=== PATIENT | male | born 1960 | race African-American/Black ===

== ENCOUNTER 2016-10-25 12:22 | Inpatient (IN) | payer OTHER ==
[2016-10-25] MEDS ORDERED: IOPAMIDOL 300 (61%) 150 ML VIAL IV ONE (12:23)
[2016-10-25] MEDS ORDERED: LACTATED RINGERS 1,000 ML ONE ×2 (13:07→16:17)
[2016-10-25] MEDS ORDERED: HYDROMORPHONE HCL 1 MG/ML SYRINGE ONE ×3 (13:07→16:17)
[2016-10-25] MEDS ORDERED: ONDANSETRON 4 MG/2ML 2 ML VIAL ONE (13:07)
[2016-10-25 13:14] LABS: ABSOLUTE NEUTROPHIL COUNT 8.6 K/mm3 (1.8-7.7); BASO # 0.1 K/mm3 (0.0-0.2); BASO % 0.5 % (0.2-1.0); EOS # 0.1 (0.0-0.5); EOS % 0.4 % (0.9-2.9); HEMOGLOBIN 21.6 gm/l (14.0-18.0); IMM NEUT # 0.1 K/mm3 (0-0.2); IMM NEUT% 1.1 % (0-1); LYMPH % 23.3 % (15-45); MEAN CELL VOLUME 89.3 fl (80.0-94.0); MEAN CORPUSCULAR HEMOGLOBIN 31.6 pg (27.0-31.0); MEAN CORPUSCULAR HGB CONC 35.4 g/dl (33.0-37.0); MEAN PLATELET VOLUME 10.7 fl (7.4-10.4); MONO # 1.2 (0.0-0.8); MONO % 9.4 % (4-12); NEUT % 65.3 % (43-75); PLATELET COUNT 139 K/mm3 (130-400); RED CELL DISTRIBUTION WIDTH 16.7 % (11.5-14.5)
--- NOTE | 2016-10-25 14:23 | CT ---
ABD/PELVIS W/ CON COMPARISON: CT abdomen and pelvis 10/02/2016 HISTORY: Abdominal pain. Past history of pancreatitis. Technique: Intravenous injection 125 mL Isovue 300. Using a [employer] Aquilion [address] scanner, images were obtained from the diaphragm to the floor the pelvis. An automated dose reduction technique was used to minimize patient radiation dose. Dose information: CTDIvol (mGy): 7.40 DLP(mGycm): 318.10 FINDINGS: Lung bases: Normal. Inferior mediastinum and heart: Normal. Liver: Normal. Gallbladder:Normal. Bile ducts: Normal. Pancreas: Multiple calcifications. Mildly dilated main pancreatic duct. No mass. No swelling. Mild stranding in the fat surrounding the tail. Spleen: No change. In the posterior superior pole, 17 mm poorly enhancing lesion. Adrenal glands: No change. In the right adrenal gland, 2.1 x 1.2 cm mass containing some fat. In the left gland, no change. There are 2 masses, superior 1.7 x 0.9 cm and inferior 1.9 x 1.7 cm, both containing fat. Kidneys: Normal. Ureters: Normal Urinary bladder: Normal. Uterus and adnexa: Normal. Blood vessels: Atherosclerosis of the aorta and its branches in the abdomen and the pelvis. Lymph nodes: Normal Stomach: Normal Duodenum: Normal Small intestine: Normal Appendix: Normal Colon: Normal Abdominal wall and supporting musculature: Normal Bones: Normal IMPRESSION: 1. Acute pancreatitis with inflammatory stranding in the fat surrounding the tail the pancreas. Baseline chronic pancreatitis with multiple calcifications. 2. No change in bilateral fat-containing adrenal masses, benign, and poorly enhancing mass in the spleen. The results were discussed with Iker Mead M.D. 10/25/2016 at 14:20
[2016-10-25 15:39] LABS: ALBUMIN 3.6 gm/dL (3.5-5.7); CALCIUM 9.4 mg/dL (8.6-10.3)
[2016-10-25 17:15] VITALS: BMI 22.7
[2016-10-25] MEDS ORDERED: PUMP TUBING ONE (17:41)
[2016-10-25] MEDS ORDERED: HYDROMORPHONE HCL 2 MG/ML SYRINGE IV PRN (17:44)
[2016-10-25] MEDS: HYDROMORPHONE HCL 1 MG/ML SYRINGE IV PRN ×4 (17:45→23:48)
[2016-10-25] MEDS: SODIUM CHLORIDE 0.9% 1,000 ML IV SCH (17:45)
[2016-10-25] MEDS ORDERED: BLISTEX LIPSTICK 1 EACH TP PRN (18:51)
[2016-10-25] MEDS ORDERED: BISACODYL 5 MG TABLET.EC PO PRN (18:51)
[2016-10-25] MEDS ORDERED: SODIUM CHLORIDE 0.9% 100 ML IV PRN (18:51)
[2016-10-25] MEDS ORDERED: MAGNESIUM HYDROXIDE 30 ML UDCUP PO PRN (18:51)
[2016-10-25] MEDS ORDERED: MENTHOL/CETYLPYRD 1 EACH LOZENGE PO PRN (18:51)
[2016-10-25] MEDS ORDERED: BISACODYL 10 MG SUP PR PRN (18:51)
[2016-10-25] MEDS ORDERED: ALBUTEROL SULFATE MDI 60 PUFFS/INHALER IH PRN (18:57)
[2016-10-25] MEDS ORDERED: NICOTINE 14 MG PATCH 1 EACH TD SCH (19:00)
[2016-10-25] MEDS ORDERED: ENOXAPARIN SODIUM 40 MG/0.4 ML SYRINGE SUB-Q SCH (19:00)
[2016-10-25] MEDS: HYDROMORPHONE HCL 2 MG/ML SYRINGE IV PRN ×2 (19:18→21:44)
[2016-10-25] MEDS: ALBUTEROL/IPRATROPIUM 2.5/0.5 MG 3 ML/EACH DOSE IH SCH (20:56)
[2016-10-25] MEDS: BUDESONIDE 0.5 MG/2 ML VIAL.NEB IH SCH (20:56)
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
[2016-10-25] MEDS: PHENYTOIN SODIUM 100 MG PO SCH (21:52)
[2016-10-25] MEDS: LEVETIRACETAM 500 MG TABLET PO SCH (21:52)
[2016-10-26] MEDS: SODIUM CHLORIDE 0.9% 1,000 ML IV SCH ×4 (00:53→21:54)
[2016-10-26] MEDS: HYDROMORPHONE HCL 2 MG/ML SYRINGE IV PRN ×10 (02:07→23:41)
[2016-10-26 02:19] LABS: SPECIFIC GRAVITY 1.015 (1.001-1.030); URINE BILIRUBIN NEGATIVE (NEGATIVE); URINE BLOOD 2+ (NEGATIVE); URINE GLUCOSE (UA) NEGATIVE (NEGATIVE); URINE LEUKOCYTE ESTERASE 1+ (NEGATIVE); URINE NITRITE NEGATIVE (NEGATIVE); URINE PROTEIN 1+ (NEGATIVE); URINE UROBILINOGEN NORMAL (0-1 mg/dl)
[2016-10-26 02:30] LABS: URINE APPEARANCE SL CLOUDY; URINE COLOR AMBER
[2016-10-26 02:31] LABS: URINE BACTERIA TRACE
[2016-10-26] MEDS: HYDROMORPHONE HCL 1 MG/ML SYRINGE IV PRN ×3 (03:56→20:37)
[2016-10-26 06:17] LABS: HEMATOCRIT 47.9 % (32.0-52.0); MEAN CELL VOLUME 90.4 fl (80.0-94.0); MEAN CORPUSCULAR HEMOGLOBIN 32.1 pg (27.0-31.0); MEAN CORPUSCULAR HGB CONC 35.5 g/dl (33.0-37.0)
[2016-10-26 06:21] LABS: ALBUMIN 3.1 gm/dL (3.5-5.7); BLOOD UREA NITROGEN 12 mg/dL (7-25); BUN/CREATININE RATIO 15 (6-20); CALCIUM 8.7 mg/dL (8.6-10.3); GLOMERULAR FILTRATION RATE 100 mL/min (60-93)
[2016-10-26 06:22] LABS: ALT/SGPT < 5 U/L (7-52)
[2016-10-26] MEDS: BUDESONIDE 0.5 MG/2 ML VIAL.NEB IH SCH ×2 (08:10→20:27)
[2016-10-26] MEDS: ALBUTEROL/IPRATROPIUM 2.5/0.5 MG 3 ML/EACH DOSE IH SCH ×4 (08:10→20:27)
[2016-10-26] MEDS: PHENYTOIN SODIUM 100 MG PO SCH ×2 (09:54→21:36)
[2016-10-26] MEDS: PANTOPRAZOLE 40 MG TABLET DR PO SCH (09:55)
[2016-10-26] MEDS: ONDANSETRON 4 MG/2ML 2 ML VIAL IV PRN ×3 (10:11→21:48)
--- NOTE | 2016-10-26 11:23 | PDOC43 ---
- Subjective Chief Complaint: Pancreatitis Abdominal pain is a little better but still severe. Vomited this a.m. C/o some dyspnea worse than normal due to abdominal bloating. - Objective Vital Signs Temperature 97.7 F 10/26/16 07:57 Pulse Rate 70 10/26/16 08:11 Respiratory Rate 18 10/26/16 08:11 Blood Pressure 110/74 10/26/16 07:57 O2 Saturation by Pulse Oximetry 93 10/26/16 08:11 Oxygen Delivery Method Room Air Oxygen Flow Rate 0 Intake and Output 10/25/16 10/26/16 10/27/16 06:59 06:59 06:59 Intake Total 2455 Output Total 550 Balance 1905 General: Alert, Oriented x3, Cooperative, Mild Distress HEENT: Mucous membr. moist/pink Lungs: Clear to Auscultation Bilaterally Cardiovascular: Regular Rate and Rhythm Abdomen: Soft, Tenderness, Hypoactive Bowel Sounds, Mild Distention, No Masses Extremities: Normal Pulses, Other (wart on dorsum of left foot), No Edema Skin: Normal Color Neurological: Normal Speech Psych/Mental Status: Normal Mood Laboratory 10/26/16 05:30 10/26/16 05:30 10/26/16 05:30 MCH 32.1 H RDW 15.0 H Estimated GFR 100 H AST 8 L ALT < 5 L Total Protein 6.1 L Albumin 3.1 L Current Medications: Current meds reviewed in EMR. - Problems: Assessment/Plan (1) Pancreatitis Qualifiers: Chronicity: acute Pancreatitis type: idiopathic Status: Acute Assessment/Plan: Acute recurrent ideopathic pancreatitis. Continue hydromorphone, ondansetron, IV fluids and ice chips. (2) COPD (chronic obstructive pulmonary disease) Qualifiers: COPD type: chronic bronchitis Chronic bronchitis type: simple Qualifier Code: (J41.0) Simple chronic bronchitis Status: Chronic Assessment/Plan: With chronic respiratory failure on home O2, continue O2 and nebs. (3) HTN (hypertension) Qualifiers: Hypertension type: essential hypertension Qualifier Code: (I10) Essential (primary) hypertension Status: Chronic Assessment/Plan: BP was high due to acute pain but well controlled now. (4) Thrombocytopenia Status: Chronic Assessment/Plan: Chronic known condition, enoxaparin is contraindicated. (5) Epilepsy Qualifiers: Epilepsy type: unspecified Intractability: not intractable Status epilepticus: without status epilepticus Qualifier Code: (G40.909) Epilepsy, unspecified, not intractable, without status epilepticus Status: Chronic Assessment/Plan: Stable, continue usual dilantin and kepra. (6) Hyponatremia Status: Chronic Assessment/Plan: at his baseline now. (7) Polycythemia Status: Chronic Assessment/Plan: H/H decreased with hydration, plan is for phlebotomy for Hct > 50%. (8) Sleep apnea Qualifiers: Sleep apnea type: obstructive Qualifier Code: (G47.33) Obstructive sleep apnea (adult) (pediatric) Status: Chronic Assessment/Plan: May use home CPAP VTE Prophylaxis: Mechanical only, enoxaparin is contraindicated. Disposition: Home when able to eat.
[2016-10-26] MEDS: SENNOSIDES 8.6 MG TABLET PO SCH ×3 (12:09→22:32)
[2016-10-26] MEDS: FUROSEMIDE 40 MG TABLET PO SCH (12:09)
[2016-10-26] MEDS: ATENOLOL 100 MG TABLET PO SCH (12:09)
[2016-10-26] MEDS: NICOTINE 14 MG PATCH 1 EACH TD SCH (14:00)
[2016-10-26] MEDS: LEVETIRACETAM 500 MG TABLET PO SCH (21:36)
[2016-10-26] MEDS ORDERED: IV START KIT ONE (23:46)
[2016-10-27] MEDS: ONDANSETRON 4 MG/2ML 2 ML VIAL IV PRN ×3 (01:51→23:14)
[2016-10-27] MEDS: HYDROMORPHONE HCL 2 MG/ML SYRINGE IV PRN ×11 (01:56→23:39)
[2016-10-27 05:53] LABS: HEMATOCRIT 45.2 % (32.0-52.0); HEMOGLOBIN 15.4 gm/l (14.0-18.0); MEAN CORPUSCULAR HGB CONC 34.1 g/dl (33.0-37.0); RED CELL DISTRIBUTION WIDTH 15.7 % (11.5-14.5)
[2016-10-27 06:11] LABS: CALCIUM 8.6 mg/dL (8.6-10.3)
[2016-10-27] MEDS: SODIUM CHLORIDE 0.9% 1,000 ML IV SCH ×5 (07:16→23:09)
[2016-10-27] MEDS: ALBUTEROL/IPRATROPIUM 2.5/0.5 MG 3 ML/EACH DOSE IH SCH ×4 (08:55→21:45)
[2016-10-27] MEDS: BUDESONIDE 0.5 MG/2 ML VIAL.NEB IH SCH ×2 (09:01→21:46)
[2016-10-27] MEDS: [UNRECOGNIZED DRUG - OTHER] PO SCH ×2 (10:02→21:30)
[2016-10-27] MEDS: PHENYTOIN 100 MG/4 ML PO SCH ×2 (10:02→21:30)
--- NOTE | 2016-10-27 11:19 | PDOC43 ---
- Subjective Chief Complaint: Pancreatitis Still having severe abdominal pain and not tolerating pills, they make him vomit. Can tolerated liquid medications with sips of room temp water. - Objective Vital Signs Temperature 97.8 F 10/27/16 08:10 Pulse Rate 74 10/27/16 09:00 Respiratory Rate 18 10/27/16 09:00 Blood Pressure 126/79 10/27/16 08:10 O2 Saturation by Pulse Oximetry 96 10/27/16 09:00 Oxygen Delivery Method Nasal Cannula Oxygen Flow Rate 2 Intake and Output 10/26/16 10/27/16 10/28/16 06:59 06:59 06:59 Intake Total 2455 2049 Output Total 550 625 Balance 1905 1424 General: Alert, Oriented x3, Cooperative, No Acute Distress HEENT: Mucous membr. moist/pink Lungs: Clear to Auscultation Bilaterally Cardiovascular: Regular Rate and Rhythm Abdomen: Soft, Tenderness, Normal Bowel Sounds, No Masses Extremities: Normal Pulses, No Edema Skin: Normal Color Neurological: Normal Speech Psych/Mental Status: Anxious Laboratory 10/27/16 05:40 10/27/16 05:40 10/27/16 05:40 MCH 32.0 H RDW 15.7 H Lipase 132 H Current Medications: Current meds reviewed in EMR. - Problems: Assessment/Plan (1) Pancreatitis Qualifiers: Chronicity: acute Pancreatitis type: idiopathic Status: Acute Assessment/Plan: Acute recurrent ideopathic pancreatitis, appears to be slowly improving. Continue hydromorphone, ondansetron, IV fluids and ice chips. (2) COPD (chronic obstructive pulmonary disease) Qualifiers: COPD type: chronic bronchitis Chronic bronchitis type: simple Qualifier Code: (J41.0) Simple chronic bronchitis Status: Chronic Assessment/Plan: With chronic respiratory failure on home O2, continue O2 and nebs. (3) HTN (hypertension) Qualifiers: Hypertension type: essential hypertension Qualifier Code: (I10) Essential (primary) hypertension Status: Chronic Assessment/Plan: BP was high due to acute pain but well controlled now. (4) Thrombocytopenia Status: Chronic Assessment/Plan: Chronic known condition, stable, enoxaparin is contraindicated. (5) Epilepsy Qualifiers: Epilepsy type: unspecified Intractability: not intractable Status epilepticus: without status epilepticus Qualifier Code: (G40.909) Epilepsy, unspecified, not intractable, without status epilepticus Status: Chronic Assessment/Plan: Stable, continue usual dilantin and kepra, changed to liquids. (6) Hyponatremia Status: Chronic Assessment/Plan: resolved. (7) Polycythemia Status: Chronic Assessment/Plan: H/H decreased with hydration, plan is for phlebotomy for Hct > 50%. (8) Sleep apnea Qualifiers: Sleep apnea type: obstructive Qualifier Code: (G47.33) Obstructive sleep apnea (adult) (pediatric) Status: Chronic Assessment/Plan: May use home CPAP VTE Prophylaxis: Mechanical only, enoxaparin is contraindicated. Disposition: Home when able to eat.
[2016-10-27] MEDS: SENNOSIDES 8.6 MG TABLET PO SCH (11:40)
[2016-10-27] MEDS: PANTOPRAZOLE 40 MG TABLET DR PO SCH (11:40)
[2016-10-27] MEDS: FUROSEMIDE 40 MG TABLET PO SCH (11:40)
[2016-10-27] MEDS: ATENOLOL 100 MG TABLET PO SCH (11:40)
[2016-10-27] MEDS: PANTOPRAZOLE SODIUM 40 MG VIAL IV SCH (11:52)
[2016-10-27] MEDS: METOPROLOL TARTRATE 1 MG/ML 5ML VIAL IV SCH ×2 (11:52→18:37)
[2016-10-27] MEDS: FUROSEMIDE 40 MG/4 ML VIAL IV SCH (11:52)
[2016-10-27] MEDS: NICOTINE 14 MG PATCH 1 EACH TD SCH (14:04)
[2016-10-27] MEDS ORDERED: LEVETIRACETAM 500 MG TABLET PO SCH (21:00)
[2016-10-27] MEDS: HYDROMORPHONE HCL 1 MG/ML SYRINGE IV PRN (21:35)
[2016-10-27] MEDS ORDERED: LEVETIRACETAM 500 MG in SODIUM CHLORIDE 0.9% 100 ML IV SCH (22:30)
[2016-10-28] MEDS: METOPROLOL TARTRATE 1 MG/ML 5ML VIAL IV SCH ×4 (00:46→18:15)
[2016-10-28] MEDS: HYDROMORPHONE HCL 2 MG/ML SYRINGE IV PRN ×7 (01:51→16:52)
[2016-10-28] MEDS: SODIUM CHLORIDE 0.9% 1,000 ML IV SCH ×3 (04:08→20:01)
[2016-10-28] MEDS: ALBUTEROL/IPRATROPIUM 2.5/0.5 MG 3 ML/EACH DOSE IH SCH ×4 (08:25→20:08)
[2016-10-28] MEDS: BUDESONIDE 0.5 MG/2 ML VIAL.NEB IH SCH ×2 (08:25→20:08)
[2016-10-28] MEDS: FUROSEMIDE 40 MG/4 ML VIAL IV SCH (08:28)
[2016-10-28] MEDS: PHENYTOIN 100 MG/4 ML PO SCH ×2 (08:37→21:08)
[2016-10-28] MEDS: [UNRECOGNIZED DRUG - OTHER] PO SCH ×2 (08:37→21:08)
--- NOTE | 2016-10-28 11:32 | PDOC43 ---
- Subjective Chief Complaint: Pancreatitis Pain is still present but much better, wants to start oral meds and clear liquids. - Objective Vital Signs Temperature 97.4 F 10/28/16 08:01 Pulse Rate 56 10/28/16 08:01 Respiratory Rate 16 10/28/16 08:01 Blood Pressure 124/78 10/28/16 08:01 O2 Saturation by Pulse Oximetry 99 10/28/16 08:01 Oxygen Delivery Method Room Air Oxygen Flow Rate 0 Intake and Output 10/27/16 10/28/16 10/29/16 06:59 06:59 06:59 Intake Total 2049 3076 Output Total 625 2900 Balance 1424 176 General: Alert, Oriented x3, Cooperative, No Acute Distress HEENT: Mucous membr. moist/pink Lungs: Clear to Auscultation Bilaterally Cardiovascular: Regular Rate and Rhythm Abdomen: Soft, Tenderness (improved), Normal Bowel Sounds, No Masses Extremities: Normal Pulses, No Edema Skin: Normal Color Neurological: Normal Speech Psych/Mental Status: Normal Mood Laboratory 10/27/16 05:40 10/27/16 05:40 Current Medications: Current meds reviewed in EMR. - Problems: Assessment/Plan (1) Pancreatitis Qualifiers: Chronicity: acute Pancreatitis type: idiopathic Status: Acute Assessment/Plan: Acute recurrent ideopathic pancreatitis, appears to be slowly improving. Continue hydromorphone, begin clears and oral meds. (2) COPD (chronic obstructive pulmonary disease) Qualifiers: COPD type: chronic bronchitis Chronic bronchitis type: simple Qualifier Code: (J41.0) Simple chronic bronchitis Status: Chronic Assessment/Plan: With chronic respiratory failure on home O2, continue O2 and nebs. (3) HTN (hypertension) Qualifiers: Hypertension type: essential hypertension Qualifier Code: (I10) Essential (primary) hypertension Status: Chronic Assessment/Plan: BP was high due to acute pain but well controlled now. (4) Thrombocytopenia Status: Chronic Assessment/Plan: Chronic known condition, stable, enoxaparin is contraindicated. (5) Epilepsy Qualifiers: Epilepsy type: unspecified Intractability: not intractable Status epilepticus: without status epilepticus Qualifier Code: (G40.909) Epilepsy, unspecified, not intractable, without status epilepticus Status: Chronic Assessment/Plan: Stable, continue usual dilantin and kepra, changed to liquids due to vomiting. (6) Hyponatremia Status: Chronic Assessment/Plan: resolved. (7) Polycythemia Status: Chronic Assessment/Plan: H/H decreased with hydration, plan is for phlebotomy for Hct > 50%. (8) Sleep apnea Qualifiers: Sleep apnea type: obstructive Qualifier Code: (G47.33) Obstructive sleep apnea (adult) (pediatric) Status: Chronic Assessment/Plan: May use home CPAP (9) Chronic pain Qualifiers: Chronic pain type: chronic pain syndrome Qualifier Code: (G89.4) Chronic pain syndrome Status: Chronic Assessment/Plan: Resume usual home morphine regimen. VTE Prophylaxis: Mechanical only, enoxaparin is contraindicated. Disposition: Home when able to eat.
[2016-10-28] MEDS: PANTOPRAZOLE SODIUM 40 MG VIAL IV SCH (12:35)
[2016-10-28] MEDS: MORPHINE SULFATE 30 MG TABLET PO SCH ×2 (14:33→20:05)
[2016-10-28] MEDS: NICOTINE 14 MG PATCH 1 EACH TD SCH (14:33)
[2016-10-28] MEDS ORDERED: LEVETIRACETAM 500 MG TABLET PO SCH (21:00)
[2016-10-28] MEDS ORDERED: AMITRIPTYLINE HCL 25 MG TABLET PO SCH (21:00)
[2016-10-28] MEDS ORDERED: MORPHINE SULFATE 30 MG TABLET PO ONE (23:43)
[2016-10-29] MEDS: METOPROLOL TARTRATE 1 MG/ML 5ML VIAL IV SCH ×2 (03:08→09:00)
[2016-10-29] MEDS: SODIUM CHLORIDE 0.9% 1,000 ML IV SCH (05:24)
[2016-10-29 06:32] LABS: HEMATOCRIT 46.2 % (32.0-52.0); HEMOGLOBIN 15.7 gm/l (14.0-18.0); MEAN CELL VOLUME 92.2 fl (80.0-94.0); MEAN CORPUSCULAR HEMOGLOBIN 31.3 pg (27.0-31.0)
[2016-10-29 06:37] LABS: CALCIUM 9.9 mg/dL (8.6-10.3)
[2016-10-29] MEDS: MORPHINE SULFATE 30 MG TABLET PO SCH (08:53)
[2016-10-29 09:20] VITALS: BP 151/94
--- NOTE | 2016-10-29 09:50 | PDOC5 ---
ADMIT DATE: 10/25/16 DISCHARGE DATE: 10/29/16 ADMISSION DIAGNOSES: recurrent acute on chronic idiopathic pancreatitis PROCEDURES PERFORMED THIS HOSPITALIZATION: CT abd/pelvis on admit--acute/ chronic pancreatitis CONSULTATIONS: None HOSPITAL COURSE: This is a 56 year old with history of chronic pancreatitis and recurrent acute episodes. He presented with abdominal pain elevated lipase and inflamatory stranding on CT. He was admitted to med/surg treated with IVF and IV hydromorphone. He had gradual reduction in symptoms. On 10/28 he was started on clear liquids and resumed his usual oral morphine dose. On 10/29 he says he is ready to go home. - Exam Vital Signs Temperature 98.9 F 10/29/16 02:00 Pulse Rate 80 10/29/16 02:00 Respiratory Rate 17 10/29/16 03:10 Blood Pressure 111/75 10/29/16 02:00 O2 Saturation by Pulse Oximetry 96 10/29/16 02:00 Oxygen Delivery Method Room Air Oxygen Flow Rate 0 General: Alert, Oriented x3, Cooperative, No Acute Distress HEENT: Mucous membr. moist/pink Lungs: Clear to Auscultation Bilaterally Cardiovascular: Regular Rate and Rhythm Abdomen: Soft, Normal Bowel Sounds, No Tenderness, No Masses Extremities: Normal Pulses, No Edema Skin: Normal Color Neurological: Normal Speech Psych/Mental Status: Depressed - Results Laboratory 10/29/16 05:30 10/29/16 05:30 10/29/16 05:30 MCH 31.3 H RDW 15.0 H BUN 4 L Estimated GFR 116 H - Problems:Assessment/Plan (1) Pancreatitis Qualifiers: Chronicity: acute Pancreatitis type: idiopathic Status: Acute Assessment/Plan: Acute recurrent ideopathic pancreatitis, appears to be slowly improving. Eating and onl oral meds today, discharge. (2) COPD (chronic obstructive pulmonary disease) Qualifiers: COPD type: chronic bronchitis Chronic bronchitis type: simple Qualifier Code: (J41.0) Simple chronic bronchitis Status: Chronic Assessment/Plan: With chronic respiratory failure on home O2, continue O2 and nebs. (3) HTN (hypertension) Qualifiers: Hypertension type: essential hypertension Qualifier Code: (I10) Essential (primary) hypertension Status: Chronic Assessment/Plan: BP was high due to acute pain but well controlled now. (4) Thrombocytopenia Status: Chronic Assessment/Plan: Chronic known condition, stable, enoxaparin is contraindicated. (5) Epilepsy Qualifiers: Epilepsy type: unspecified Intractability: not intractable Status epilepticus: without status epilepticus Qualifier Code: (G40.909) Epilepsy, unspecified, not intractable, without status epilepticus Status: Chronic Assessment/Plan: Stable, continue usual dilantin and kepra, resume oral meds (6) Hyponatremia Status: Chronic Assessment/Plan: resolved. (7) Polycythemia Status: Chronic Assessment/Plan: H/H decreased with hydration, plan is for phlebotomy for Hct > 50%. (8) Sleep apnea Qualifiers: Sleep apnea type: obstructive Qualifier Code: (G47.33) Obstructive sleep apnea (adult) (pediatric) Status: Chronic Assessment/Plan: May use home CPAP (9) Chronic pain Qualifiers: Chronic pain type: chronic pain syndrome Qualifier Code: (G89.4) Chronic pain syndrome Status: Chronic Assessment/Plan: Resume usual home morphine regimen. - Disposition: Disposition: Home today - Discharge Plan Instruction Forms: Heart Failure Discharge Medications: Dr. Benitez has your morphine prescription ready at the clinic. Follow-Up: Ruslan Benitez MD [Primary Care Provider] - 11/05/16 9:45 am Condition: Fair Disposition: Home
[2016-10-29] MEDS: ALBUTEROL/IPRATROPIUM 2.5/0.5 MG 3 ML/EACH DOSE IH SCH (09:58)
[2016-10-29] MEDS: PHENYTOIN 100 MG/4 ML PO SCH (10:16)
[2016-10-29] MEDS: [UNRECOGNIZED DRUG - OTHER] PO SCH (10:16)
== END 2016-10-29 09:55 | disposition home or self-care (01) | DRG 439 ==
LOC: ED 12:22 → MS 16:17
PROVIDERS: ADMIT Family Medicine; ATTEND Family Medicine
DX: K85.90 Acute pancreatitis without necrosis or infection, unspecified (principal); I50.32 Chronic diastolic (congestive) heart failure; K86.1 Other chronic pancreatitis; I70.0 Atherosclerosis of aorta; E27.9 Disorder of adrenal gland, unspecified; R16.1 Splenomegaly, not elsewhere classified; J44.9 Chronic obstructive pulmonary disease, unspecified; Z99.81 Dependence on supplemental oxygen; D75.1 Secondary polycythemia; R09.02 Hypoxemia; G47.33 Obstructive sleep apnea (adult) (pediatric); G40.909 Epilepsy, unspecified, not intractable, without status epilepticus; M54.9 Dorsalgia, unspecified; I11.0 Hypertensive heart disease with heart failure; Z99.3 Dependence on wheelchair; F17.210 Nicotine dependence, cigarettes, uncomplicated

== ENCOUNTER 2017-01-06 05:58 | Inpatient (IN) | payer OTHER ==
[2017-01-06] MEDS ORDERED: ONDANSETRON 4 MG/2ML 2 ML VIAL ONE (06:52)
[2017-01-06] MEDS ORDERED: HYDROMORPHONE HCL 1 MG/ML SYRINGE ONE ×3 (06:52→08:15)
[2017-01-06] MEDS ORDERED: SODIUM CHLORIDE 0.9% 1,000 ML ONE (06:52)
[2017-01-06 07:08] LABS: ABSOLUTE NEUTROPHIL COUNT 7.4 K/mm3 (1.8-7.7); BASO # 0.1 K/mm3 (0.0-0.2); BASO % 0.5 % (0.2-1.0); EOS # 0.1 (0.0-0.5); EOS % 0.6 % (0.9-2.9); HEMATOCRIT 61.2 % (32.0-52.0); HEMOGLOBIN 21.8 gm/l (14.0-18.0); IMM NEUT # 0.1 K/mm3 (0-0.2); LYMPH % 18.5 % (15-45); MEAN CELL VOLUME 94.2 fl (80.0-94.0); MEAN CORPUSCULAR HEMOGLOBIN 33.5 pg (27.0-31.0); MEAN CORPUSCULAR HGB CONC 35.6 g/dl (33.0-37.0); MEAN PLATELET VOLUME 11.2 fl (7.4-10.4); MONO # 0.9 (0.0-0.8); MONO % 8.8 % (4-12); NEUT % 70.6 % (43-75); PLATELET COUNT 138 K/mm3 (130-400); RED CELL DISTRIBUTION WIDTH 17.8 % (11.5-14.5)
[2017-01-06 07:31] LABS: ALBUMIN 4.1 gm/dL (3.5-5.7); CALCIUM 9.8 mg/dL (8.6-10.3)
[2017-01-06] MEDS ORDERED: BLISTEX LIPSTICK 1 EACH TP PRN (09:25)
[2017-01-06] MEDS ORDERED: MENTHOL/CETYLPYRD 1 EACH LOZENGE PO PRN (09:25)
[2017-01-06] MEDS ORDERED: SODIUM CHLORIDE 0.9% 100 ML IV PRN (09:25)
[2017-01-06] MEDS ORDERED: ACETAMINOPHEN 325 MG TABLET PO PRN (09:25)
[2017-01-06] MEDS ORDERED: BISACODYL 10 MG SUP PR PRN (09:25)
[2017-01-06] MEDS ORDERED: BISACODYL 5 MG TABLET.EC PO PRN (09:25)
[2017-01-06] MEDS ORDERED: HYDROMORPHONE HCL 2 MG/ML SYRINGE IV PRN (09:26)
[2017-01-06] MEDS ORDERED: HYDROMORPHONE HCL 0.5 MG/0.5 ML SYRINGE IV PRN (10:15)
[2017-01-06 10:20] VITALS: BMI 22.9
[2017-01-06] MEDS ORDERED: PUMP TUBING ONE (10:27)
[2017-01-06] MEDS: SODIUM CHLORIDE 0.9% 1,000 ML IV SCH ×4 (10:30→23:06)
[2017-01-06] MEDS: HYDROMORPHONE HCL 1 MG/ML SYRINGE IV PRN ×3 (10:31→22:02)
[2017-01-06] MEDS: ENOXAPARIN SODIUM 40 MG/0.4 ML SYRINGE SUB-Q SCH (10:31)
[2017-01-06] MEDS ORDERED: HYDROMORPHONE HCL 1 MG/ML SYRINGE IV ONE (11:34)
[2017-01-06] MEDS ORDERED: NALOXONE HCL 0.4 MG/ML VIAL IV PRN (11:41)
[2017-01-06] MEDS ORDERED: PROMETHAZINE IV PER PHARMACY 1 EACH in SODIUM CHLORIDE 0.9% 50 ML IV PRN (11:44)
[2017-01-06] MEDS ORDERED: HYDROMORPHONE PCA (MONOJECT) 12 MG/30 ML INJ.SOLN IV SCH (11:49)
[2017-01-06] MEDS ORDERED: PHENYTOIN SODIUM 100 MG PO SCH (12:15)
[2017-01-06] MEDS ORDERED: PCA ADMINISTRATION KIT ONE (12:18)
[2017-01-06] MEDS ORDERED: ALBUTEROL NEB 2.5 MG/3 ML VIAL.NEB NEB PRN (12:25)
[2017-01-06] MEDS ORDERED: EtCO2 Monitoring Set ONE (12:33)
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
[2017-01-06] MEDS: PROCHLORPERAZINE 5 MG/ML 2 ML VIAL IV ONE ×2 (13:53→14:21)
[2017-01-06] MEDS ORDERED: PROCHLORPERAZINE MALEATE 10 MG TABLET PO PRN (14:09)
[2017-01-06] MEDS: ATENOLOL 100 MG TABLET PO SCH (14:18)
[2017-01-06] MEDS: ONDANSETRON 4 MG/2ML 2 ML VIAL IV PRN ×2 (14:18→22:02)
[2017-01-06] MEDS: ALBUTEROL/IPRATROPIUM 2.5/0.5 MG 3 ML/EACH DOSE IH SCH ×4 (16:32→23:46)
[2017-01-06] MEDS: PHENYTOIN 125 MG/5 ML PO SCH ×2 (17:05→22:10)
[2017-01-06] MEDS: AMLODIPINE BESYLATE 5 MG TABLET PO SCH (17:06)
[2017-01-06] MEDS: HYDROMORPHONE PCA (MONOJECT) 12 MG/30 ML INJ.SOLN IV SCH (18:00)
[2017-01-06] MEDS: BUDESONIDE 0.5 MG/2 ML VIAL.NEB IH SCH ×2 (19:38→23:05)
[2017-01-06] MEDS ORDERED: LEVETIRACETAM 250 MG TABLET PO SCH (21:00)
[2017-01-06] MEDS: LEVETIRACETAM 250 MG TABLET PO SCH (22:11)
[2017-01-07] MEDS: SODIUM CHLORIDE 0.9% 1,000 ML IV SCH ×4 (03:59→23:32)
[2017-01-07] MEDS: HYDROMORPHONE HCL 1 MG/ML SYRINGE IV PRN ×6 (03:59→22:19)
[2017-01-07] MEDS: HYDROMORPHONE PCA (MONOJECT) 12 MG/30 ML INJ.SOLN IV SCH ×4 (06:00→18:31)
[2017-01-07 06:10] LABS: ABSOLUTE NEUTROPHIL COUNT 5.9 K/mm3 (1.8-7.7); BASO % 0.4 % (0.2-1.0); EOS # 0.1 (0.0-0.5); EOS % 1.2 % (0.9-2.9); HEMATOCRIT 50.4 % (32.0-52.0); HEMOGLOBIN 17.1 gm/l (14.0-18.0); IMM NEUT # 0.1 K/mm3 (0-0.2); IMM NEUT% 0.6 % (0-1); LYMPH % 21.9 % (15-45); MEAN CELL VOLUME 97.5 fl (80.0-94.0); MEAN CORPUSCULAR HEMOGLOBIN 33.1 pg (27.0-31.0); MEAN CORPUSCULAR HGB CONC 33.9 g/dl (33.0-37.0); MEAN PLATELET VOLUME 11.7 fl (7.4-10.4); MONO # 0.9 (0.0-0.8); MONO % 9.7 % (4-12); NEUT % 66.2 % (43-75); PLATELET COUNT 116 K/mm3 (130-400); RED CELL DISTRIBUTION WIDTH 17.2 % (11.5-14.5)
[2017-01-07 06:26] LABS: CALCIUM 8.3 mg/dL (8.6-10.3)
[2017-01-07] MEDS: BUDESONIDE 0.5 MG/2 ML VIAL.NEB IH SCH ×3 (07:43→20:05)
[2017-01-07] MEDS: ALBUTEROL/IPRATROPIUM 2.5/0.5 MG 3 ML/EACH DOSE IH SCH ×5 (07:43→20:05)
[2017-01-07] MEDS: AMLODIPINE BESYLATE 5 MG TABLET PO SCH (08:36)
[2017-01-07] MEDS: ATENOLOL 100 MG TABLET PO SCH (08:36)
[2017-01-07] MEDS: PHENYTOIN 125 MG/5 ML PO SCH ×3 (08:37→20:33)
[2017-01-07] MEDS: ENOXAPARIN SODIUM 40 MG/0.4 ML SYRINGE SUB-Q SCH (09:20)
[2017-01-07] MEDS ORDERED: EtCO2 Monitoring Set ONE (09:57)
--- NOTE | 2017-01-07 11:18 | PDOC43 ---
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 moist/pink Lungs: Clear to Auscultation Bilaterally, Diminished at Bases Cardiovascular: Regular Rate and Rhythm Abdomen: Soft, Normal Bowel Sounds, Mild Distention, Other (diffuse discomfort to palpation), No Rebounding, No Involuntary Guarding Extremities: Normal Pulses, No Edema Peripheral Pulses: Dorsalis Pedis (L): 2+, Dorsalis Pedis (R): 2+ Skin: Warm, Dry, Intact Laboratory 01/07/17 05:30 01/07/17 05:30 01/07/17 05:30 MCV 97.5 H MCH 33.1 H RDW 17.2 H Estimated GFR 100 H Calcium 8.3 L Lipase 991 H Current Medications: Current meds reviewed in EMR. - Problems: Assessment/Plan (1) Pancreatitis Qualifiers: Chronicity: acute Pancreatitis type: drug induced Status: Acute Assessment/Plan: Acute on chronic pancreatitis suspect drug induced possibly from testosterone, lipase up to 991 today - bowel rest, aggressive hydration (2) Polycythemia Status: ChronicAssessment/Plan: followed by Dr Harrison also believed to be a side effect of testosterone and chronic hypoxia - therapeutic phlebotomy after discharge (3) Transgendered Status: ChronicAssessment/Plan: genotypically female, phenotypically male on testosterone replacement (4) COPD (chronic obstructive pulmonary disease) Qualifiers: COPD type: chronic bronchitis Chronic bronchitis type: unspecified Qualifier Code: (J42) Unspecified chronic bronchitis Status: Chronic Assessment/Plan: with chronic hypoxic resp failure on home oxygen - stable (5) Chronic pain Qualifiers: Chronic pain type: chronic pain syndrome Qualifier Code: (G89.4) Chronic pain syndrome Status: ChronicAssessment/Plan: on morphine at home totalling 90mg daily, appears opioid tolerant - cont Dilaudid (6) HTN (hypertension) Qualifiers: Hypertension type: essential hypertension Qualifier Code: (I10) Essential (primary) hypertension Status: ChronicAssessment/Plan: taking usual meds with sips of water (7) Epilepsy Qualifiers: Epilepsy type: unspecified Intractability: not intractable Status epilepticus: without status epilepticus Qualifier Code: (G40.909) Epilepsy, unspecified, not intractable, without status epilepticus Status: Chronic Assessment/Plan: taking dilantin but switched to liquid form to reduce amount of water needed to take pills (8) Sleep apnea Qualifiers: Sleep apnea type: obstructive Qualifier Code: (G47.33) Obstructive sleep apnea (adult) (pediatric) Status: ChronicAssessment/Plan: using home CPAP VTE Prophylaxis: Lovenox Disposition: home in 2-4 days
[2017-01-07] MEDS ORDERED: SODIUM CHLORIDE 0.9% FLUSH 10 ML ONE (12:06)
[2017-01-07] MEDS ORDERED: IV START KIT ONE (12:06)
[2017-01-07] MEDS: LEVETIRACETAM 250 MG TABLET PO SCH (20:33)
[2017-01-07] MEDS ORDERED: WATER FOR IRRIG,STERILE 500 ML BOT ONE (22:14)
[2017-01-07] MEDS ORDERED: NICOTINE POLACRILEX 2 MG LOZENGE PO PRN (22:19)
[2017-01-08] MEDS: HYDROMORPHONE PCA (MONOJECT) 12 MG/30 ML INJ.SOLN IV SCH ×4 (00:30→18:09)
[2017-01-08] MEDS: SODIUM CHLORIDE 0.9% 1,000 ML IV SCH ×5 (01:58→22:28)
[2017-01-08] MEDS: NICOTINE 14 MG PATCH 1 EACH TD SCH ×2 (02:12→21:37)
[2017-01-08] MEDS: HYDROMORPHONE HCL 1 MG/ML SYRINGE IV PRN ×3 (02:12→08:25)
[2017-01-08 06:18] LABS: ABSOLUTE NEUTROPHIL COUNT 5.2 K/mm3 (1.8-7.7); BASO % 0.3 % (0.2-1.0); EOS # 0.2 (0.0-0.5); EOS % 2.5 % (0.9-2.9); HEMATOCRIT 45.2 % (32.0-52.0); HEMOGLOBIN 15.5 gm/l (14.0-18.0); IMM NEUT% 0.5 % (0-1); LYMPH # 1.7 (1.0-4.8); LYMPH % 20.8 % (15-45); MEAN CELL VOLUME 98.3 fl (80.0-94.0); MEAN CORPUSCULAR HEMOGLOBIN 33.7 pg (27.0-31.0); MEAN CORPUSCULAR HGB CONC 34.3 g/dl (33.0-37.0); MEAN PLATELET VOLUME 11.5 fl (7.4-10.4); MONO # 0.8 (0.0-0.8); MONO % 10.2 % (4-12); NEUT % 65.7 % (43-75); PLATELET COUNT 92 K/mm3 (130-400)
[2017-01-08 06:26] LABS: CALCIUM 8.2 mg/dL (8.6-10.3)
--- NOTE | 2017-01-08 08:12 | PDOC43 ---
- Subjective Chief Complaint: epigastric abd pain Pain is better, no longer radiating into chest, but still radiating to back. Slept a little better last night. - Objective Vital Signs Temperature 98.0 F 01/08/17 07:18 Pulse Rate 70 01/08/17 07:18 Respiratory Rate 16 01/08/17 07:18 Blood Pressure 137/79 01/08/17 07:18 O2 Saturation by Pulse Oximetry 98 01/08/17 07:18 Oxygen Delivery Method Room Air Oxygen Flow Rate 0 Intake and Output 01/07/17 01/08/17 01/09/17 06:59 06:59 06:59 Intake Total 3285 5372 Output Total 450 2200 Balance 2835 3172 General: Alert, Oriented x3, Cooperative, No Acute Distress HEENT: Mucous membr. moist/pink Lungs: Clear to Auscultation Bilaterally Cardiovascular: Regular Rate and Rhythm Abdomen: Soft, Tenderness, Hypoactive Bowel Sounds, No Rebounding, No Involuntary Guarding, No Masses Extremities: Normal Pulses, No Edema Skin: Normal Color Neurological: Normal Speech Psych/Mental Status: Normal Mood Laboratory 01/08/17 05:30 01/08/17 05:30 01/08/17 05:30 RBC 4.60 L MCV 98.3 H MCH 33.7 H RDW 17.0 H Anion Gap 7 L BUN 5 L Estimated GFR 116 H Calcium 8.2 L Lipase 178 H Current Medications: Current meds reviewed in EMR. - Problems: Assessment/Plan (1) Pancreatitis Qualifiers: Chronicity: acute Pancreatitis type: drug induced Status: Acute Assessment/Plan: Acute on chronic pancreatitis suspect drug induced from testosterone, improving with decreased lipase today. 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 Improved with hydration. Return to Dr. Harrison for therapeutic phlebotomy after discharge. (3) COPD (chronic obstructive pulmonary disease) Qualifiers: COPD type: chronic bronchitis Chronic bronchitis type: unspecified Qualifier Code: (J42) Unspecified chronic bronchitis Status: Chronic Assessment/Plan: with chronic hypoxic resp failure on home oxygen - stable (4) CHF (congestive heart failure) Qualifiers: Congestive heart failure type: diastolic Congestive heart failure chronicity: chronic Qualifier Code: (I50.32) Chronic diastolic (congestive) heart failure Status: ChronicAssessment/Plan: No evidence of current exacerbation. (5) Epilepsy Qualifiers: Epilepsy type: unspecified Intractability: not intractable Status epilepticus: without status epilepticus Qualifier Code: (G40.909) Epilepsy, unspecified, not intractable, without status epilepticus Status: Chronic Assessment/Plan: taking dilantin but switched to liquid form to reduce amount of water needed to take pills (6) Sleep apnea Qualifiers: Sleep apnea type: obstructive Qualifier Code: (G47.33) Obstructive sleep apnea (adult) (pediatric) Status: ChronicAssessment/Plan: using home CPAP (7) HTN (hypertension) Qualifiers: Hypertension type: essential hypertension Qualifier Code: (I10) Essential (primary) hypertension Status: ChronicAssessment/Plan: taking usual meds with sips of water, moderate control (8) Hyponatremia Status: ChronicAssessment/Plan: At his personal baseline. VTE Prophylaxis: Lovenox Disposition: home in 2-4 days
[2017-01-08] MEDS: AMLODIPINE BESYLATE 5 MG TABLET PO SCH (08:24)
[2017-01-08] MEDS: ATENOLOL 100 MG TABLET PO SCH (08:24)
[2017-01-08] MEDS: PHENYTOIN 125 MG/5 ML PO SCH ×3 (08:24→21:03)
[2017-01-08] MEDS: ALBUTEROL/IPRATROPIUM 2.5/0.5 MG 3 ML/EACH DOSE IH SCH ×4 (08:36→20:43)
[2017-01-08] MEDS: BUDESONIDE 0.5 MG/2 ML VIAL.NEB IH SCH ×2 (08:37→20:42)
[2017-01-08] MEDS: ENOXAPARIN SODIUM 40 MG/0.4 ML SYRINGE SUB-Q SCH (09:04)
[2017-01-08] MEDS: LEVETIRACETAM 250 MG TABLET PO SCH (21:02)
[2017-01-09] MEDS: SODIUM CHLORIDE 0.9% 1,000 ML IV SCH ×5 (04:48→23:30)
[2017-01-09 06:14] LABS: HEMATOCRIT 47.6 % (32.0-52.0); HEMOGLOBIN 16.4 gm/l (14.0-18.0); MEAN CELL VOLUME 97.5 fl (80.0-94.0); MEAN CORPUSCULAR HEMOGLOBIN 33.6 pg (27.0-31.0); MEAN CORPUSCULAR HGB CONC 34.5 g/dl (33.0-37.0); RED CELL DISTRIBUTION WIDTH 16.6 % (11.5-14.5)
[2017-01-09 06:37] LABS: CALCIUM 8.9 mg/dL (8.6-10.3)
[2017-01-09] MEDS: HYDROMORPHONE PCA (MONOJECT) 12 MG/30 ML INJ.SOLN IV SCH ×3 (06:52→17:42)
[2017-01-09] MEDS: ALBUTEROL/IPRATROPIUM 2.5/0.5 MG 3 ML/EACH DOSE IH SCH ×4 (08:30→20:26)
[2017-01-09] MEDS: BUDESONIDE 0.5 MG/2 ML VIAL.NEB IH SCH ×2 (08:35→20:27)
[2017-01-09] MEDS: ENOXAPARIN SODIUM 40 MG/0.4 ML SYRINGE SUB-Q SCH (09:19)
[2017-01-09] MEDS: PHENYTOIN 125 MG/5 ML PO SCH (09:21)
[2017-01-09] MEDS: ATENOLOL 100 MG TABLET PO SCH (09:28)
[2017-01-09] MEDS: AMLODIPINE BESYLATE 5 MG TABLET PO SCH (09:28)
[2017-01-09] MEDS ORDERED: DOCUSATE SODIUM 100 MG CAPSULE PO PRN (10:40)
[2017-01-09] MEDS ORDERED: AMITRIPTYLINE HCL 25 MG TABLET PO PRN (10:40)
[2017-01-09] MEDS ORDERED: BACLOFEN 20 MG TABLET PO PRN (10:40)
--- NOTE | 2017-01-09 10:40 | PDOC43 ---
- Subjective Chief Complaint: epigastric abd pain Improving but still some pain. Anticipates he will be ready for discharge tomorrow. - Objective Vital Signs Temperature 96.9 F 01/09/17 09:42 Pulse Rate 71 01/09/17 09:42 Respiratory Rate 16 01/09/17 09:42 Blood Pressure 142/96 01/09/17 09:42 O2 Saturation by Pulse Oximetry 98 01/09/17 09:42 Oxygen Delivery Method Nasal Cannula Oxygen Flow Rate 2 Intake and Output 01/08/17 01/09/17 01/10/17 06:59 06:59 06:59 Intake Total 5372 4208 Output Total 2200 3800 Balance 3172 408 General: Alert, Oriented x3, Cooperative, No Acute Distress HEENT: Mucous membr. moist/pink Lungs: Clear to Auscultation Bilaterally Cardiovascular: Regular Rate and Rhythm Abdomen: Soft, Tenderness (mild epigastric), Normal Bowel Sounds, No Masses Extremities: Normal Pulses, No Edema Skin: Normal Color Neurological: Normal Speech Psych/Mental Status: Normal Mood Laboratory 01/09/17 05:30 01/09/17 05:30 01/09/17 05:30 MCV 97.5 H MCH 33.6 H RDW 16.6 H BUN 2 L Estimated GFR 139 H Lipase 108 H Current Medications: Current meds reviewed in EMR. - Problems: Assessment/Plan (1) Pancreatitis Qualifiers: Chronicity: acute Pancreatitis type: drug induced Status: Acute Assessment/Plan: Acute on chronic pancreatitis, drug induced from testosterone, improving with decreased lipase today. 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 Improved with hydration. Return to Dr. Harrison for therapeutic phlebotomy after discharge. (3) COPD (chronic obstructive pulmonary disease) Qualifiers: COPD type: chronic bronchitis Chronic bronchitis type: unspecified Qualifier Code: (J42) Unspecified chronic bronchitis Status: Chronic Assessment/Plan: with chronic hypoxic resp failure on home oxygen - stable (4) CHF (congestive heart failure) Qualifiers: Congestive heart failure type: diastolic Congestive heart failure chronicity: chronic Qualifier Code: (I50.32) Chronic diastolic (congestive) heart failure Status: ChronicAssessment/Plan: No evidence of current exacerbation. (5) Epilepsy Qualifiers: Epilepsy type: unspecified Intractability: not intractable Status epilepticus: without status epilepticus Qualifier Code: (G40.909) Epilepsy, unspecified, not intractable, without status epilepticus Status: Chronic Assessment/Plan: taking dilantin, resume pills (6) Sleep apnea Qualifiers: Sleep apnea type: obstructive Qualifier Code: (G47.33) Obstructive sleep apnea (adult) (pediatric) Status: ChronicAssessment/Plan: using home CPAP (7) HTN (hypertension) Qualifiers: Hypertension type: essential hypertension Qualifier Code: (I10) Essential (primary) hypertension Status: ChronicAssessment/Plan: taking usual meds with sips of water, moderate control (8) Hyponatremia Status: ChronicAssessment/Plan: At his personal baseline. (9) Nicotine dependence Qualifiers: Nicotine product type: cigarettes Substance use status: uncomplicated Qualifier Code: (F17.210) Nicotine dependence, cigarettes, uncomplicated Status: ChronicAssessment/Plan: on replacement (10) Hypokalemia Status: AcuteAssessment/Plan: replace VTE Prophylaxis: Lovenox Disposition: home in 1-2 days
[2017-01-09] MEDS ORDERED: POTASSIUM CHLORIDE 20 MEQ TAB.PRT.SR PO ONE (10:46)
[2017-01-09] MEDS: SENNOSIDES 8.6 MG TABLET PO SCH ×3 (12:16→21:08)
[2017-01-09] MEDS: MORPHINE SULFATE 30 MG TABLET PO SCH ×2 (14:57→20:49)
[2017-01-09] MEDS: PHENYTOIN SODIUM 100 MG PO SCH (20:48)
[2017-01-09] MEDS: LEVETIRACETAM 250 MG TABLET PO SCH (20:53)
[2017-01-09] MEDS ORDERED: WATER FOR IRRIG,STERILE 500 ML BOT ONE (22:27)
[2017-01-09] MEDS: NICOTINE 14 MG PATCH 1 EACH TD SCH (22:30)
[2017-01-10] MEDS: HYDROMORPHONE PCA (MONOJECT) 12 MG/30 ML INJ.SOLN IV SCH (05:07)
[2017-01-10] MEDS: SODIUM CHLORIDE 0.9% 1,000 ML IV SCH ×2 (07:14→10:56)
[2017-01-10 07:17] LABS: CALCIUM 9.3 mg/dL (8.6-10.3)
[2017-01-10 08:32] VITALS: BP 135/89
--- NOTE | 2017-01-10 08:46 | PDOC5 ---
ADMIT DATE: 01/06/17 DISCHARGE DATE: 01/10/17 ADMISSION DIAGNOSES: acute on chronic pancreatitis PROCEDURES PERFORMED THIS HOSPITALIZATION: none CONSULTATIONS: none HOSPITAL COURSE: This is a 56 year old who is well know to the hospitalist service. He presented with recurrent acute pancreatitis due to chronic testosterone treatment. He was given IV hydration, bowel rest and hydromorphone for pain control. His symptoms gradually improved and lipase level returned to normal. On 01/10 he is eating a full diet and ready to go home. - Exam Vital Signs Temperature 97.8 F 01/10/17 08:31 Pulse Rate 74 01/10/17 08:31 Respiratory Rate 20 01/10/17 08:31 Blood Pressure 135/89 01/10/17 08:31 O2 Saturation by Pulse Oximetry 94 01/10/17 08:31 Oxygen Delivery Method Room Air Oxygen Flow Rate 0 General: Alert, Oriented x3, Cooperative, Other (getting dressed and ready to go home), No Acute Distress HEENT: Mucous membr. moist/pink Lungs: Clear to Auscultation Bilaterally Cardiovascular: Regular Rate and Rhythm Abdomen: Soft, Normal Bowel Sounds, No Tenderness, No Masses Extremities: Normal Pulses, No Edema Skin: Normal Color Neurological: Normal Speech Psych/Mental Status: Normal Mood - Results Laboratory 01/09/17 05:30 01/10/17 06:15 01/10/17 06:15 BUN 3 L Estimated GFR 116 H - Problems:Assessment/Plan (1) Pancreatitis Qualifiers: Chronicity: acute Pancreatitis type: drug induced Status: Acute Assessment/Plan: Acute on chronic pancreatitis, drug induced from testosterone, resolved. (2) Polycythemia Status: ChronicAssessment/Plan: followed by Dr Harrison also believed to be a side effect of testosterone and chronic hypoxia. Improved with hydration. Return to Dr. Harrison for therapeutic phlebotomy after discharge. (3) COPD (chronic obstructive pulmonary disease) Qualifiers: COPD type: chronic bronchitis Chronic bronchitis type: unspecified Qualifier Code: (J42) Unspecified chronic bronchitis Status: Chronic Assessment/Plan: with chronic hypoxic resp failure on home oxygen - stable (4) CHF (congestive heart failure) Qualifiers: Congestive heart failure type: diastolic Congestive heart failure chronicity: chronic Qualifier Code: (I50.32) Chronic diastolic (congestive) heart failure Status: ChronicAssessment/Plan: No evidence of current exacerbation. (5) Epilepsy Qualifiers: Epilepsy type: unspecified Intractability: not intractable Status epilepticus: without status epilepticus Qualifier Code: (G40.909) Epilepsy, unspecified, not intractable, without status epilepticus Status: Chronic Assessment/Plan: taking dilantin and kepra at usual doses (6) Sleep apnea Qualifiers: Sleep apnea type: obstructive Qualifier Code: (G47.33) Obstructive sleep apnea (adult) (pediatric) Status: ChronicAssessment/Plan: using home CPAP (7) HTN (hypertension) Qualifiers: Hypertension type: essential hypertension Qualifier Code: (I10) Essential (primary) hypertension Status: ChronicAssessment/Plan: taking usual meds, moderate control (8) Hyponatremia Status: ChronicAssessment/Plan: At his personal baseline. (9) Nicotine dependence Qualifiers: Nicotine product type: cigarettes Substance use status: uncomplicated Qualifier Code: (F17.210) Nicotine dependence, cigarettes, uncomplicated Status: ChronicAssessment/Plan: on replacement (10) Hypokalemia Status: AcuteAssessment/Plan: resolved - Disposition: Disposition: home today - Discharge Plan Prescriptions: Amlodipine Besylate [NORVASC 5 MG TABLET (SHF)] 5 mg PO QAM #30 Atenolol [ATENOLOL 100 MG TABLET (SHF)] 50 mg PO DAILY #30 Follow-Up: Ruslan Benitez MD [Primary Care Provider] - 01/17/17 1:30 pm Darrin Harrison MD [Referring] - Condition: Good Disposition: Home
[2017-01-10] MEDS ORDERED: PANTOPRAZOLE 40 MG TABLET DR PO SCH (09:00)
[2017-01-10] MEDS: AMLODIPINE BESYLATE 5 MG TABLET PO SCH (09:54)
[2017-01-10] MEDS: SENNOSIDES 8.6 MG TABLET PO SCH (09:54)
[2017-01-10] MEDS: PHENYTOIN SODIUM 100 MG PO SCH (09:54)
[2017-01-10] MEDS: ATENOLOL 100 MG TABLET PO SCH (09:55)
[2017-01-10] MEDS: MORPHINE SULFATE 30 MG TABLET PO SCH (09:55)
[2017-01-10] MEDS: ENOXAPARIN SODIUM 40 MG/0.4 ML SYRINGE SUB-Q SCH (10:56)
[2017-01-10] MEDS: BUDESONIDE 0.5 MG/2 ML VIAL.NEB IH SCH (10:56)
[2017-01-10] MEDS: ALBUTEROL/IPRATROPIUM 2.5/0.5 MG 3 ML/EACH DOSE IH SCH (10:56)
== END 2017-01-10 11:05 | disposition home or self-care (01) | DRG 439 ==
LOC: ED 05:58 → MS 07:57 → OBSVTOIN 09:25
PROVIDERS: ADMIT Family Medicine; ATTEND Family Medicine
DX: K85.90 Acute pancreatitis without necrosis or infection, unspecified (principal); J44.0 Chronic obstructive pulmonary disease with (acute) lower respiratory infection; J96.11 Chronic respiratory failure with hypoxia; I50.32 Chronic diastolic (congestive) heart failure; E87.1 Hypo-osmolality and hyponatremia; K86.1 Other chronic pancreatitis; D75.1 Secondary polycythemia; J20.9 Acute bronchitis, unspecified; G40.909 Epilepsy, unspecified, not intractable, without status epilepticus; G47.33 Obstructive sleep apnea (adult) (pediatric); I11.0 Hypertensive heart disease with heart failure; F17.210 Nicotine dependence, cigarettes, uncomplicated; E87.6 Hypokalemia; I25.10 Atherosclerotic heart disease of native coronary artery without angina pectoris